=== PATIENT | male | born 2000 | race Caucasian/White ===

== ENCOUNTER 2018-06-13 20:28 | Emergency (ER) | payer MEDICAID, OTHER ==
[~2018-06-13] VITALS: Ht 177.8 cm; Wt 63.5 kg
[2018-06-13 20:55] VITALS: BP_SYST 130
[2018-06-13 22:09] VITALS: BP_SYST 124
== END 2018-06-13 22:08 | disposition home or self-care (01) ==
LOC: SED 20:28
DX: S93.401A Sprain of unspecified ligament of right ankle, initial encounter (principal); J45.909 Unspecified asthma, uncomplicated; W01.0XXA Fall on same level from slipping, tripping and stumbling without subsequent striking against object, initial encounter; Y93.51 Activity, roller skating (inline) and skateboarding; Y92.89 Other specified places as the place of occurrence of the external cause; Y99.8 Other external cause status
CPT/HCPCS: 99284